=== PATIENT | female | born 1990 ===

== ENCOUNTER 2024-07-18 18:29 | Emergency (ER) | payer BC ==
[2024-07-18] MEDS: Acetaminophen/oxyCODONE 325-5 MG Tab PO ONE (20:03)
[2024-07-18] MEDS: Cefdinir 300 MG Cap PO ONE (20:04)
== END 2024-07-18 20:19 | disposition home or self-care (01) ==
LOC: MW.ED 18:29
DX: H66.41 Suppurative otitis media, unspecified, right ear (principal); Z75.8 Other problems related to medical facilities and other health care; Z88.0 Allergy status to penicillin
CPT/HCPCS: 99282; A9270; 99283